=== PATIENT | female | born 1990 | race Hispanic/Latino ===

== ENCOUNTER 2017-10-05 18:37 | Emergency (ER) | payer SELFPAY ==
[2017-10-05 19:14] LABS: APPEARANCE,URINE Clear (CLEAR); BILIRUBIN,URINE Negative (NEGATIVE); COLOR,URINE Yellow (YELLOW); GLUCOSE, URINE (UA) Negative (NEGATIVE); KETONES,URINE Negative (NEGATIVE); LEUKOCYTE ESTERASE ,URINE Negative (NEGATIVE); NITRATE,URINE Negative (NEGATIVE); OCCULT BLOOD,URINE Small (NEGATIVE); PROTEIN,URINE Trace (NEGATIVE)
[2017-10-05 19:18] LABS: RAPID GROUP A STREP NEGATIVE (NEGATIVE)
[2017-10-05 19:23] LABS: HCG,QUAL RESULT NEGATIVE (NEGATIVE)
[2017-10-05 19:33] LABS: BACTERIA,URINE Rare /HPF (None Seen); SQUAMOUS EPITHELIAL CELL,UR Few /LPF (0-2); WBC,URINE 0-1 /HPF (0-1)
[2017-10-05] MEDS ORDERED: KETOROLAC TROMETHAMINE 30MG/ML ONE (19:53)
[2017-10-05] MEDS ORDERED: SODIUM CHLORIDE 0.9% 1000ML 1,000 ML IV ONE (19:53)
[2017-10-05 20:01] LABS: BASOPHILS % (AUTO) 0.4 % (0.0-5.0); HEMATOCRIT 43.2 % (36-48); LYMPHOCYTES % (AUTO) 12.9 % (21.0-51.0); MEAN CORPUSCULAR HEMOGLOBIN 33.1 pg (27.0-33.0); MEAN CORPUSCULAR HGB CONC 35.5 g/dL (32.0-36.0); MEAN CORPUSCULAR VOLUME 93.1 fL (79-99); NEUTROPHILS % (AUTO) 81.7 % (40.0-77.0); NUCLEATED RED BLOOD CELLS 0.1 % (0.0-0.19); PLATELET COUNT (AUTO) 112 K/uL (130-400); RED BLOOD CELL COUNT(AUTO) 4.64 MIL/uL (4.00-5.50); RED CELL DISTRIBUTION WIDTH 12.3 % (11.0-15.5); WHITE BLOOD COUNT (AUTO) 6.8 K/uL (4.8-10.8)
[2017-10-05 21:02] LABS: ALBUMIN 3.1 g/dL (3.5-5.0); BILIRUBIN,TOTAL 0.4 mg/dL (0.2-1.0); TOTAL PROTEIN, SERUM 6.7 g/dL (6.0-8.3)
[2017-10-05 21:07] LABS: POTASSIUM 2.9 mmol/L (3.5-5.1)
[2017-10-05] MEDS ORDERED: POTASSIUM BICARB/CIT AC 25 MEQ TABLET.EFF ONE (21:11)
[2017-10-05] MEDS ORDERED: DOXYCYCLINE HYCLATE 100 MG TABLET PO ONE (21:18)
== END 2017-10-05 22:00 | disposition home or self-care (01) ==
LOC: EDH 18:37
DX: A75.9 Typhus fever, unspecified (principal); E87.6 Hypokalemia; R11.2 Nausea with vomiting, unspecified; Z72.0 Tobacco use
CPT/HCPCS: 36415; 80053; 81001; 81025; 85025; 87804 ×2; 87880; 96361; 96374; 99285; J1885; J7030